=== PATIENT | male | born 1990 | race African-American/Black ===

== ENCOUNTER 2017-08-10 14:05 | Emergency (ER) | payer BC ==
[~2017-08-10] VITALS: Ht 185.4 cm; Wt 110.7 kg
[2017-08-10 14:05] VITALS: BP_SYST 139
[2017-08-10] MEDS ORDERED: KETOROLAC TROMETHAMINE 60 MG/2 ML VIAL IM ONE (14:30)
[2017-08-10] MEDS ORDERED: MAG HYDROX/AL HYDROX/SIMETH 30 ML, BELLADONNA ALKALOIDS/PHENOBARB 10 ML, LIDOCAINE VISC... PO ONE ×3 (14:30)
[2017-08-10] MEDS ORDERED: BELLADONNA ALKALOIDS/PHENOBARB 5 ML UDC PO ONE (14:45)
[2017-08-10 14:53] LABS: EOSINOPHILS # (AUTO) 0.3 K/uL (0.0-0.4); EOSINOPHILS % (AUTO) 5.2 % (0.0-4.0); HEMATOCRIT 42.7 % (36-54); HEMOGLOBIN 13.8 g/dL (14.0-18.0); LYMPHOCYTES # (AUTO) 1.4 K/uL (1.0-5.5); LYMPHOCYTES % (AUTO) 21.7 % (20.5-51.5); MEAN CORPUSCULAR HEMOGLOBIN 28 pg (27-31); MEAN CORPUSCULAR HGB CONC 32 % (32-36); MEAN CORPUSCULAR VOLUME 87 fL (79.0-98.0); MONOCYTES # (AUTO) 0.3 K/uL (0.0-1.0); PLATELET COUNT (AUTO) 328 K/uL (130-430); RED BLOOD CELL COUNT(AUTO) 4.93 MIL/uL (4.2-6.2); RED CELL DISTRIBUTION WIDTH 14.2 % (9.0-15.0); WHITE BLOOD COUNT (AUTO) 6.3 K/uL (4.8-10.8)
[2017-08-10 14:58] LABS: NEUTROPHILS % (AUTO) 69.1 % (40.0-70.0)
[2017-08-10 14:59] LABS: NEUTROPHILS # (AUTO) 4.3 K/uL (1.8-7.7)
[2017-08-10] MEDS ORDERED: LIDOCAINE VISCOUS 2%, 15 ML UDC PO ONE (15:00)
[2017-08-10 16:08] LABS: CALCIUM 9.5 mg/dL (8.4-11.0); CREATININE 0.99 mg/dL (0.55-1.30); POTASSIUM 4.1 mmol/L (3.5-5.1)
[2017-08-10 16:14] LABS: ALBUMIN 3.5 g/dL (3.4-4.8); TOTAL BILIRUBIN 0.5 mg/dL (0.0-1.0)
[2017-08-10 16:41] LABS: CKMB RELATIVE INDEX 0.8 (0.0-2.9); CREATINE KINASE MB 3.3 ng/mL (0-3.6)
[2017-08-10 16:48] VITALS: BP_SYST 137
== END 2017-08-10 16:47 | disposition home or self-care (01) ==
LOC: SED 14:05
DX: R07.9 Chest pain, unspecified (principal)
CPT/HCPCS: 36415; 71045; 80053; 82550; 82553; 83880; 84484; 85025; 93005; 96372; 99285; J1885; J2001